=== PATIENT | female | born 1940 | race Caucasian/White ===

== ENCOUNTER 2022-12-26 16:27 | Outpatient (CLI) | payer MEDICARE, SELFPAY ==
[2022-12-26 18:50] LABS: Prolactin 279.9 ng/mL (4.8-23.3)
== END 2022-12-26 16:28 | disposition home or self-care (01) ==
LOC: LAB 16:32
PROVIDERS: PCP Family Medicine; Visit Provider Internal Medicine
DX: D35.2 Benign neoplasm of pituitary gland (principal); E03.8 Other specified hypothyroidism
CPT/HCPCS: 36415; 84146; 99204

== ENCOUNTER 2023-01-23 11:40 | Outpatient (CLI) | payer MEDICARE, SELFPAY ==
--- NOTE | 2023-01-23 11:45 | MR_ITS ---
WS: [id number] MRI BRAIN WITHOUT AND WITH CONTRAST, ATTENTION DIRECTED TO THE PITUITARY GLAND HISTORY: Benign neoplasm of pituitary gland COMPARISON: 06/28/2022 TECHNIQUE: Diffusion-weighted imaging, axial T2 sequence, and postcontrast images in 3 planes are per formed. High-resolution coronal and sagittal imaging performed through the pituitary region with and without intravenous gadolinium. No diffusion abnormality. Mild atrophy and very mild small vessel ischemic changes within the subcort ical white matter. No large prior infarct. Normal cerebellum. No ischemic changes in the kirsten. No mas s at the cerebellopontine angle. Ventricles are normal. Again noted is the fullness in the LEFT dorsum sellae and pituitary gland similar to the prior study. There is very slight mass effect upon the infundibulum with slight deviation to the RIGHT of midline . No mass effect upon the optic chiasm. Mass is best seen in the sagittal plane. Mass measures 6 x 8 x 9 mm. No obvious increase in size since the prior study. Decreased enhancement post contrast with r espect to the adjacent pituitary. No additional mass or mass effect. Posterior fossa and brainstem ar e negative. Dural venous sinuses are normal. Mastoid air cells are normal. Visualized sinuses are clear. MR/MR pituitary wo/w con* [id number] IMPRESSION: 1. No change in the hypointense mass in the LEFT pituitary measuring 6 x 8 x 9 mm. Most consistent with pituitary microadenoma. No significant change since . There is no deviation or mass effect upon the optic chiasm. 2. Very mild cerebral atrophy otherwise and small vessel ischemic disease. No prior infarcts. 3. No additional masses.
[2023-01-23] MEDS: gadobenate dimeglumine 20 mL vial IV (12:47)
== END 2023-01-23 11:41 | disposition home or self-care (01) ==
PROVIDERS: PCP Family Medicine; Visit Provider Internal Medicine
DX: D35.2 Benign neoplasm of pituitary gland (principal); E03.8 Other specified hypothyroidism; G31.9 Degenerative disease of nervous system, unspecified
CPT/HCPCS: 70553; A9577

== ENCOUNTER → 2023-03-29 14:40 | Outpatient (BNVA) | payer MEDICARE, SELFPAY | PROVIDERS: PCP Family Medicine; Visit Provider Internal Medicine | DX: R73.03 Prediabetes (principal); H53.8 Other visual disturbances; D35.2 Benign neoplasm of pituitary gland; E03.8 Other specified hypothyroidism | CPT/HCPCS: 99214 ==

== ENCOUNTER → 2023-04-06 10:46 | Outpatient (BNVA) | payer MEDICARE, MEDICAID, SELFPAY | PROVIDERS: PCP Family Medicine; Visit Provider Internal Medicine Rheumatology | DX: Z79.899 Other long term (current) drug therapy (principal); M19.90 Unspecified osteoarthritis, unspecified site; Z11.59 Encounter for screening for other viral diseases; M19.042 Primary osteoarthritis, left hand; M19.071 Primary osteoarthritis, right ankle and foot | CPT/HCPCS: 36415; 73130; 73630; 80076; 82306; 82565; 85025; 85651; 86038; 86140; 86200; 86480; 86704; 86803; 87340; 99204 ==

== ENCOUNTER → 2023-06-08 14:03 | Outpatient (BNVA) | payer MEDICARE, SELFPAY | PROVIDERS: PCP Family Medicine; Visit Provider Internal Medicine Rheumatology | DX: Z79.899 Other long term (current) drug therapy (principal); M15.4 Erosive (osteo)arthritis; M25.50 Pain in unspecified joint | CPT/HCPCS: 99214 ==

== ENCOUNTER → 2023-08-01 09:15 | Outpatient (BNVA) | payer MEDICARE, SELFPAY | PROVIDERS: PCP Family Medicine; Visit Provider Internal Medicine | DX: D35.2 Benign neoplasm of pituitary gland (principal); E03.8 Other specified hypothyroidism; R35.89 Other polyuria; R51.9 Headache, unspecified; R73.09 Other abnormal glucose | CPT/HCPCS: 36415; 83036; 84146; 84439; 84443; 99214 ==

== ENCOUNTER → 2023-09-07 13:00 | Outpatient (BNVA) | payer MEDICARE, SELFPAY | PROVIDERS: PCP Family Medicine; Visit Provider Internal Medicine Rheumatology | DX: M25.50 Pain in unspecified joint (principal); M15.4 Erosive (osteo)arthritis; Z79.899 Other long term (current) drug therapy | CPT/HCPCS: 99214 ==

== ENCOUNTER → 2023-12-14 12:49 | Outpatient (BNVA) | payer MEDICARE, MEDICAID, SELFPAY | PROVIDERS: PCP Family Medicine; Visit Provider Internal Medicine Rheumatology | DX: Z79.899 Other long term (current) drug therapy (principal); M25.50 Pain in unspecified joint; M15.4 Erosive (osteo)arthritis | CPT/HCPCS: 36415; 80076; 82565; 85025; 86140; 99214 ==

== ENCOUNTER → 2024-01-30 11:32 | Outpatient (BNVA) | payer MEDICARE, MEDICAID, SELFPAY | PROVIDERS: PCP Family Medicine; Visit Provider Internal Medicine | DX: D35.2 Benign neoplasm of pituitary gland (principal); E03.8 Other specified hypothyroidism; R35.89 Other polyuria; R51.9 Headache, unspecified; R73.09 Other abnormal glucose | CPT/HCPCS: 36415; 84146; 84439; 84443; 99214 ==

== ENCOUNTER → 2024-05-30 13:13 | Outpatient (BNVA) | payer MEDICARE, MEDICAID, SELFPAY | PROVIDERS: PCP Family Medicine; Visit Provider Internal Medicine Rheumatology | DX: Z79.899 Other long term (current) drug therapy (principal); M25.50 Pain in unspecified joint; M15.4 Erosive (osteo)arthritis | CPT/HCPCS: 80076; 82565; 85025; 85651; 86140; 99214 ==

== ENCOUNTER → 2024-07-18 09:16 | Outpatient (BNVA) | payer MEDICARE, MEDICAID, SELFPAY | PROVIDERS: PCP Family Medicine; Visit Provider Internal Medicine | DX: D35.2 Benign neoplasm of pituitary gland (principal); E03.8 Other specified hypothyroidism; Z79.899 Other long term (current) drug therapy; R35.89 Other polyuria; R51.9 Headache, unspecified; R73.09 Other abnormal glucose | CPT/HCPCS: 36415; 84146; 84439; 84443; 99214 ==

== ENCOUNTER 2024-12-13 10:43 | Outpatient (CLI) | payer MEDICARE, MEDICAID, SELFPAY ==
--- NOTE | 2024-12-13 11:00 | MR_ITS ---
WS: [id number] MRI BRAIN WITHOUT AND WITH CONTRAST, ATTENTION DIRECTED TO THE PITUITARY GLAND HISTORY: pituitary gland neoplasm COMPARISON: 01/23/2023 TECHNIQUE: Diffusion-weighted imaging, axial T2 sequence, and postcontrast images in 3 planes are performed. High-resolution coronal and sagittal imaging performed through the pituitary region with and without intravenous gadolinium. Nearly empty sella turcica. Reidentified is mild asymmetry of the pituitary gland which has been documented on prior MRIs. The area of asymmetry has decreased in size. 3 x 5 mm nonenhancing nodule in the base of the LEFT pituitary. No soft tissue enhancing or encasing the carotid arteries. No optic chiasm displacement. Normal position of the infundibulum. Normal diffusion imaging. Mild bilateral cerebral atrophy and small vessel disease without significant progression since 01/23/2023. No infarcts. No intracranial hemorrhage or edema. Ventricles are normal size. No inferior displacement of the cerebellar tonsils. Enhancing mass closely associated with the RIGHT interhemispheric falx along the superior vertex. This mass is enhancing measuring 8 x 8 x 13 mm and probably represents a small meningioma. Mass was probably also present on the prior studies but better visualized today. There is been no interval change since 06/28/2022. MR/MR pituitary wo/w con* [id number] IMPRESSION: 1. Interval decrease in size of the LEFT pituitary microadenoma since 3. Largest diameter noted today is 3 x 5 mm. 2. No acute infarcts or hemorrhage. 3. Minimal small vessel disease with no progression. 4. 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 Probably pre sent on prior studies but better seen today due to imaging technique. No progre ssion since 06/28/2022.
[2024-12-13] MEDS: gadobenate dimeglumine 20 mL vial 12 ML IV (12:02)
== END 2024-12-13 10:44 | disposition home or self-care (01) ==
LOC: RAD 10:45
PROVIDERS: PCP Family Medicine; Visit Provider Internal Medicine
DX: D35.2 Benign neoplasm of pituitary gland (principal); E03.8 Other specified hypothyroidism; R90.89 Other abnormal findings on diagnostic imaging of central nervous system; G31.89 Other specified degenerative diseases of nervous system; I67.89 Other cerebrovascular disease
CPT/HCPCS: 70553

== ENCOUNTER 2025-01-09 10:09 | Outpatient (CLI) | payer MEDICARE, MEDICAID, SELFPAY ==
[2025-01-09 10:52] LABS: Estmated Average Glucose 100; Hemoglobin A1C 5.1 % (4.0-6.0)
[2025-01-09 11:05] LABS: Free T4 Free Thyroxine 0.95 ng/dL (0.82-1.77); Thyroid Stimulating Hormone 8.74 uIU/mL (0.27-4.20)
[2025-01-09 11:27] LABS: Prolactin 47.72 ng/mL (4.8-23.3)
== END 2025-01-09 10:10 | disposition home or self-care (01) ==
PROVIDERS: PCP Family Medicine; Visit Provider Internal Medicine
DX: D35.2 Benign neoplasm of pituitary gland (principal); Z79.899 Other long term (current) drug therapy; E03.8 Other specified hypothyroidism; R35.89 Other polyuria; R51.9 Headache, unspecified; R73.09 Other abnormal glucose
CPT/HCPCS: 36415; 83036; 84146; 84439; 84443

== ENCOUNTER → 2025-02-04 11:55 | Outpatient (BNVA) | payer MEDICARE, MEDICAID, SELFPAY | PROVIDERS: PCP Family Medicine; Visit Provider Internal Medicine | DX: D35.2 Benign neoplasm of pituitary gland (principal); E03.8 Other specified hypothyroidism; Z79.899 Other long term (current) drug therapy; R73.09 Other abnormal glucose | CPT/HCPCS: 99214 ==